=== PATIENT | male | born 2005 | race Caucasian/White ===

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

== ENCOUNTER 2023-07-16 17:44 | Emergency (ER) | payer OTHER, SELFPAY ==
[~2023-07-16] VITALS: Ht 180.3 cm; Wt 62.9 kg
[~2023-07-16 17:44] MED LIST changes: +CYCL-707 PO; +NICO21PAT TD
[2023-07-16 22:45] LABS: CPK CREATINE PHOSPHOKINASE 87 U/L (46-171); MB/CK RELATIVE INDEX 1.14 (< OR =4)
[2023-07-16 23:02] VITALS: BP 104/63; TEMP 97.8; O2SAT 96
== END 2023-07-16 22:57 | disposition home or self-care (01) ==
LOC: M ED 17:44
DX: R07.89 Other chest pain (principal); X50.0XXA Overexertion from strenuous movement or load, initial encounter; R00.1 Bradycardia, unspecified; I45.10 Unspecified right bundle-branch block; F17.200 Nicotine dependence, unspecified, uncomplicated; Y92.9 Unspecified place or not applicable; Y93.9 Activity, unspecified; Y99.0 Civilian activity done for income or pay

== ENCOUNTER → 2024-09-09 | Outpatient (CLI) | payer OTHER ==
[~2024-09-09] MED LIST changes: +ONDA-282 PO; -ONDA4TAB6 PO
== END ==
LOC: M OUTALCOH 07:50
PROVIDERS: ATTEND Psychiatry & Neurology Psychiatry
DX: F10.10 Alcohol abuse, uncomplicated (principal); Z72.0 Tobacco use

== ENCOUNTER 2024-10-20 16:00 | Outpatient (RCR) | payer OTHER | END 2024-10-21 | LOC: M OUTALCOH 16:00 | PROVIDERS: ATTEND Psychiatry & Neurology Psychiatry | DX: F10.20 Alcohol dependence, uncomplicated (principal); Z72.0 Tobacco use ==

== ENCOUNTER 2024-11-17 16:00 | Outpatient (RCR) | payer OTHER | END 2024-11-18 | LOC: M OUTALCOH 16:00 | PROVIDERS: ATTEND Psychiatry & Neurology Psychiatry | DX: F10.20 Alcohol dependence, uncomplicated (principal); Z72.0 Tobacco use ==

== ENCOUNTER 2024-11-24 14:46 | Outpatient (RCR) | payer OTHER | END 2024-12-19 | LOC: M OUTALCOH 14:46 | PROVIDERS: ATTEND Psychiatry & Neurology Psychiatry | DX: F10.20 Alcohol dependence, uncomplicated (principal); Z72.0 Tobacco use ==